=== PATIENT | male | born 1985 | race African-American/Black ===

== ENCOUNTER 2024-09-18 17:58 | Emergency (ER) | payer OTHER, SELFPAY ==
[2024-09-18 18:00] VITALS: BP 132/91; PULSE 75; RESP 16; TEMP 37; O2SAT 98; BMI 32.0
--- NOTE | 2024-09-18 18:28 | ED.RN ---
THIS RN ATTEMPTED TO CALL TWO DIFFERENT NUMBERS TO ATTEMPT TO REACH PT'S EMPLOYER. UNABLE TO REACH ANYONE IN REGARDS TO DRUG TESTING. CHARGE NURSE NOTIFIED
--- NOTE | 2024-09-18 18:57 | ED.RN ---
Left knee wound cleaned and dressed. Bacitracin applied
--- NOTE | 2024-09-18 18:58 | ED.RN ---
Addendum entered by Chandni Martinez 09/18/24 18:59: Transported to radiology Original Note: Patient transported to CT
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
--- NOTE | 2024-09-18 19:00 | RAD_ITS ---
STUDY: X-RAY - LEFT KNEE REASON FOR EXAM: Male, 39 years old. Injury/Pain TECHNIQUE: 3 view(s) of the knee. COMPARISON: None. FINDINGS: Normal visualized distal femur. Normal visualized proximal tibia and fibula. Normal proximal tibiofibular articulation. There is no demonstrated fracture. Normal medial femorotibial compartment. Normal lateral femorotibial compartment. Normal patellofemoral articulation. There is no demonstrated joint effusion. The soft tissue structures are unremarkable. RAD/Knee 4 or More Views IMPRESSION: Normal x-ray examination of the knee. Electronically Signed: Tyrone Umana MD at 19:54 EST ,
--- NOTE | 2024-09-18 19:00 | RAD_ITS ---
STUDY: X-RAY - RIGHT KNEE REASON FOR EXAM: Male, 39 years old. Injury/Pain TECHNIQUE: 4 view(s) of the knee. COMPARISON: None. FINDINGS: Normal visualized distal femur. Normal visualized proximal tibia and fibula. Normal proximal tibiofibular articulation. There is no demonstrated fracture. Normal medial femorotibial compartment. Normal lateral femorotibial compartment. Normal patellofemoral articulation. There is no demonstrated joint effusion. The soft tissue structures are unremarkable. RAD/Knee 4 or More Views IMPRESSION: Normal x-ray examination of the knee. Electronically Signed: Tyrone Umana MD at 19:55 EST ,
[2024-09-18] MEDS: HYDROcodone Bitartrate/Apap 5/325 Tablet PO (19:10)
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
[2024-09-18 19:59] VITALS: PULSE 79; RESP 16; O2SAT 98
--- NOTE | 2024-09-18 20:14 | ED.RN ---
Patient given sandwich, cookies, and powerade.
[2024-09-18 20:49] VITALS: BP 132/91; PULSE 79; RESP 16; TEMP 37; O2SAT 98
--- NOTE | 2024-09-18 20:53 | ED.RN ---
Patient given [facility] contact information at time of discharge with discharge instructions.
== END 2024-09-18 21:01 | disposition home or self-care (01) ==
PROVIDERS: Emergency Provider Surgery; Visit Provider Surgery
DX: S80.02XA Contusion of left knee, initial encounter (principal); S80.01XA Contusion of right knee, initial encounter; S80.212A Abrasion, left knee, initial encounter; R10.2 Pelvic and perineal pain; V68.5XXA Driver of heavy transport vehicle injured in noncollision transport accident in traffic accident, initial encounter
CPT/HCPCS: 72170; 73564; 99284